=== PATIENT | female | born 1975 | race Caucasian/White ===

== ENCOUNTER 2022-09-01 10:09 | Outpatient (OUT) | payer MEDICAID, SELFPAY ==
[2022-09-01 10:40] LABS: Basophils Percent Auto 0.4 % (0.2-2.0); Eosinophils Absolute Auto 0.2 10^3/uL (0.0-0.7); Eosinophils Percent Auto 2.2 % (0.9-7.0); Hematocrit 45.7 % (36.0-48.0); Hemoglobin 14.7 g/dL (12.0-16.0); Immature Granulocytes Abs Auto 0.02 10^3/uL (0.00-0.03); Immature Granulocytes Pct Auto 0.3 % (0.0-0.5); Lymphocytes Absolute Auto 2.1 10^3/uL (1.2-3.8); Lymphocytes Percent Auto 29.3 % (20.5-60.0); Mean Corpuscular HGB Conc 32.2 g/dL (29.9-35.2); Mean Corpuscular Hemoglobin 27.1 pg (26.7-34.0); Mean Corpuscular Volume 84.3 fL (81.0-99.0); Monocytes Absolute Auto 0.3 10^3/uL (0.3-0.8); Monocytes Percent Auto 4.1 % (1.7-12.0); Neutrophils Absolute Auto 4.7 10^3/uL (1.4-6.5); Neutrophils Percent Auto 63.7 % (43.0-75.0); Platelet Count 218 10^3/uL (150-450); Red Blood Count 5.42 10^6/uL (4.20-5.40); Red Cell Distribution Width 13.4 % (11.0-15.0); White Blood Count 7.3 10^3/uL (4.0-11.0)
[2022-09-01 11:04] LABS: Partial Thromboplastin Time 25.6 sec (22.3-36.2); Prothrombin Time 9.7 sec (9.0-11.6)
[2022-09-01 11:06] LABS: INR <0.93
[2022-09-01 12:48] LABS: BUN Creatinine Ratio 19.5; Calcium 8.5 mg/dL (8.5-10.1); Carbon Dioxide 29.7 mmol/L (21.0-32.0); Chloride 106 mmol/L (98-107); Estimated GFR (African America >60 (>=60); Estimated GFR (Non-African Ame >60 (>=60); Glucose 131 mg/dL (74-106); Potassium 4.7 mmol/L (3.5-5.1); Sodium 142 mmol/L (136-145)
== END 2022-09-01 10:10 | disposition home or self-care (01) ==
LOC: PST 10:09
PROVIDERS: PCP Student in an Organized Health Care Education/Training Program; Visit Provider Urology
DX: Z01.812 Encounter for preprocedural laboratory examination (principal); N20.0 Calculus of kidney; J45.909 Unspecified asthma, uncomplicated; F31.9 Bipolar disorder, unspecified; G40.909 Epilepsy, unspecified, not intractable, without status epilepticus; G47.30 Sleep apnea, unspecified; R31.9 Hematuria, unspecified; I48.91 Unspecified atrial fibrillation
CPT/HCPCS: 36415; 80048; 85025; 85610; 85730

== ENCOUNTER 2022-09-15 07:47 | Day surgery (SDC) | payer MEDICAID, SELFPAY ==
[2022-09-01 11:15] VITALS: PULSE 67; TEMP 36.6; O2SAT 98; BMI 32.6
[2022-09-15] VITALS (13 sets, daily range): BP systolic 99–123; BP diastolic 43–84; PULSE 64–85; RESP 10–18; TEMP 36.1–36.3; O2SAT 91–97; BMI 32.3
[2022-09-15 08:31] LABS: Glucometer 123 mg/dL (74-106)
--- NOTE | 2022-09-15 08:45 | XR_ITS ---
The [address] [address] Patient Name: BRI MOSCOSO MRN: [id number] date: 1975 Sex: F Assigned Patient Location: [facility] Current Patient Location: [facility] Accession/Order Number: [id number] Exam Date: 09/15/2022 08:05 Report Date: 09/15/2022 10:37 At the request of: DELORES ADAMS Procedure: XR abdomen 1V EXAM: XR abdomen 1V HISTORY: kidney stone COMPARISON: None. TECHNIQUE: AP view of the abdomen. FINDINGS: Nonobstructive bowel gas pattern is noted. There are renal calculi, largest measuring up to 4 mm. The osseous structures are intact. XR/XR abdomen 1V IMPRESSION: Nonobstructive bowel gas pattern. Right nephrolithiasis. Electronically authenticated by: LEREOY ERNANDEZ Date: 09/15/2022 10:37
[2022-09-15] MEDS: LACTATED RINGER'S SOLUTION 1,000 ML 50 ML IV (09:02)
[2022-09-15] MEDS: CEFAZOLIN SODIUM/DEXTROSE,ISO 1 GM/50 ML IV.SOLN IV (10:02)
--- NOTE | 2022-09-15 10:38 | PM.URSON ---
Urology Surgery Operative Note Operative Note Procedure Date: 09/15/22 Time Out Performed: yes Pre-op Diagnosis: right nephrolithiasis Post-op Diagnosis: same Procedures performed: #1. Right ESWL. Anesthesia: other (Gen. by LMA) Primary Surgeon: Mikel Story Complications: none Estimated blood loss (mL): 0 Findings: 2, right dense renal calculi. Substantial fragmentation took place but possibly not complete. Specimens: none Indications for Procedures: this lady sleeve had ureteroscopic stone manipulation done. She now presents for right ESWL. She has signed an informed consent for this procedure after all the risks were explained to her. Some of these risks include bleeding, perinephric hematoma, infection and anesthesia to name a few. Detailed description of Procedure: patient was brought to the operating room and placed on the [employer] electromagnetic lithotripsy treatment table in the supine position. SCDs were placed on her lower extremities and turned on and functioning during the entire case. Timeout was done by all parties in the room. We all agreed upon the patient's identification and the planned procedures for this patient. Gen. anesthesia was then administered via LMA. We then brought the treatment head to her right flank. While using fluoroscopy we could identify her 2 stones in the lower pole. These were lined up in the crosshairs as a single entity. We then began applying shocks at power level II.0 and increased to maximum of power level III.7. The stones were slowed a fragment. Eventually after about 1800 shocks we began seeing fragmentation. The density dramatically decreased in appearance. The larger stone seemed to fall into the lower stone. We applied a total of 3000 shocks to this right renal unit. Our last fluoroscopic image suggested we had significant fragmentation but I question if there was totaal fragmentation. The procedure was then terminated. [facility] and [facility]ed to PACU in stable condition.
[2022-09-15] MEDS: PROMETHAZINE HCL 25 MG/ML VIAL 12.5 MG IV (11:50)
== END 2022-09-15 12:50 | disposition home or self-care (01) ==
PROVIDERS: PCP Student in an Organized Health Care Education/Training Program; Visit Provider Urology
PROC: (CPT 00873; principal; 2022-09-15 10:10)
DX: N20.0 Calculus of kidney (principal); J45.909 Unspecified asthma, uncomplicated; G40.909 Epilepsy, unspecified, not intractable, without status epilepticus; G47.30 Sleep apnea, unspecified; R31.9 Hematuria, unspecified; I48.91 Unspecified atrial fibrillation; Z87.440 Personal history of urinary (tract) infections; Z90.49 Acquired absence of other specified parts of digestive tract; Z98.51 Tubal ligation status; N39.46 Mixed incontinence
CPT/HCPCS: 00873; 50590; 36415; 74018; 82948; J2704

== ENCOUNTER 2023-03-13 12:28 | Outpatient (OUT) | payer OTHER, SELFPAY ==
--- NOTE | 2023-03-13 12:34 | MR_ITS ---
The [address] [address] Patient Name: BRI MOSCOSO MRN: [id number] date: 1975 Sex: F Assigned Patient Location: MRI Current Patient Location: MRI Accession/Order Number: [id number] Exam Date: 03/13/2023 12:50 Report Date: 03/13/2023 13:37 At the request of: KAUSHAL JEFFREY Procedure: MR head/brain wo con MR head/brain wo con, 03/13/2023 12:50 PM EST INDICATION: concussion, [id number], minor closed head injury [id number] COMPARISON: There is no appropriate prior study for comparison. TECHNIQUE: Multiplanar, multisequential MRI images of brain were obtained without injection of contrast. FINDINGS: The cerebral sulci as well as ventricular system are appropriate for age. There is no restricted diffusion. Few hyperintensities on T2 and FLAIR images in the peck radiata and centrum semiovale with sparing of U fibers are nonspecific, could be consistent with minor traumatic brain injury or mild microvascular ischemic changes. There is no intracranial mass, mass effect, midline shift, intra or extra-axial fluid collection or large hemorrhage. Normal flow-void in the intracranial vessels is noted. The visualized portions of orbits, mastoid air cells as well as paranasal sinuses are unremarkable. MR/MR head/brain wo con IMPRESSION: No acute intracranial process is noted. Electronically authenticated by: GHULAM FIELD Date: 03/13/2023 13:37
== END 2023-03-13 12:29 | disposition home or self-care (01) ==
LOC: MRI 12:29
PROVIDERS: PCP Student in an Organized Health Care Education/Training Program; Visit Provider Nurse Practitioner Family
DX: S06.0XAA Concussion with loss of consciousness status unknown, initial encounter (principal); S09.90XA Unspecified injury of head, initial encounter
CPT/HCPCS: 70551